=== PATIENT | female | born 1995 | race Caucasian/White ===

== ENCOUNTER 2023-03-18 11:24 | Emergency (ER) | payer MEDICAID ==
[~2023-03-18] VITALS: Ht 175.3 cm; Wt 66.2 kg
[2023-03-18 11:39] VITALS: BP_SYST 102; PULSE 81; RESP 18; TEMP 98.3; O2SAT 97
[2023-03-18] MEDS ORDERED: MECLIZINE HCL 25 MG TABLET (ANITVERT) PO ONE (12:00)
[2023-03-18] MEDS ORDERED: METOCLOPRAMIDE HCL 10 MG/2 ML VIAL IVP ONE (12:00)
[2023-03-18 12:15] LABS: BASOPHILS % (AUTO) 0.6 % (0.0-2.0); EOSINOPHILS # (AUTO) 0.1 K/uL (0.0-0.4); EOSINOPHILS % (AUTO) 1.4 % (0.0-4.0); HEMATOCRIT 37.6 % (36-48); HEMOGLOBIN 11.9 g/dL (12.0-16.0); LYMPHOCYTES # (AUTO) 2.9 K/uL (1.0-5.5); LYMPHOCYTES % (AUTO) 35.8 % (20.5-51.5); MEAN CORPUSCULAR HEMOGLOBIN 24 pg (27-31); MEAN CORPUSCULAR HGB CONC 32 % (32-36); MEAN CORPUSCULAR VOLUME 75 fL (79.0-98.0); MONOCYTES # (AUTO) 0.4 K/uL (0.0-1.0); MONOCYTES % (AUTO) 5.4 % (1.7-9.3); NEUTROPHILS # (AUTO) 4.6 K/uL (1.8-7.7); NEUTROPHILS % (AUTO) 56.8 % (40.0-70.0); PLATELET COUNT (AUTO) 231 K/uL (130-430); RED BLOOD CELL COUNT(AUTO) 4.99 MIL/uL (4.2-6.2); RED CELL DISTRIBUTION WIDTH 15.3 % (9.0-15.0); WHITE BLOOD COUNT (AUTO) 8.1 K/uL (4.8-10.8)
[2023-03-18 12:30] LABS: ERYTHROCYTE SEDIMENTATION RATE 11 MM/HR (0-20)
[2023-03-18 12:36] LABS: CALCIUM 8.8 mg/dL (8.4-11.0); CREATININE 0.7 mg/dL (0.55-1.30); POTASSIUM 3.9 mmol/L (3.5-5.1)
[2023-03-18 12:37] LABS: SERUM HCG (QUALITATIVE) NEGATIVE (NEGATIVE)
[2023-03-18 13:02] LABS: ALBUMIN 3.8 g/dL (3.4-4.8); TOTAL BILIRUBIN 0.3 mg/dL (0.0-1.0); TOTAL PROTEIN, SERUM 7.3 g/dL (6.4-8.3)
[2023-03-18] MEDS ORDERED: AMOX500C2 PO (13:46)
[2023-03-18] MEDS ORDERED: MECL-261 PO (13:46)
[2023-03-18 13:59] VITALS: BP_SYST 102; PULSE 81; RESP 18; TEMP 98.3; O2SAT 97
[2023-03-18 14:24] LABS: THYROID STIMULATING HORMONE 3.66 uIu/mL (0.34-4.82)
[2023-03-18 14:46] LABS: COVID19 ANTIGEN SOFIA FIA NEGATIVE (NEGATIVE); INFLUENZA TYPE A NEGATIVE (NEGATIVE); INFLUENZA TYPE B NEGATIVE (NEGATIVE)
== END 2023-03-18 13:56 | disposition home or self-care (01) ==
LOC: SED 11:24
DX: H66.93 Otitis media, unspecified, bilateral (principal); R42 Dizziness and giddiness; R11.0 Nausea; R05.9 Cough, unspecified; Z79.899 Other long term (current) drug therapy; Z20.822 Contact with and (suspected) exposure to COVID-19
CPT/HCPCS: 99285; 70450; 71045; 87426; 80053; 84703; 84439; 84443; 85025; 85651; 84484; 36415; 93005; 76376; 81025; 87804 ×2; 82397; J8597; J7030

== ENCOUNTER 2023-09-19 14:08 | Emergency (ER) | payer MEDICAID ==
[~2023-09-19] VITALS: Ht 175.3 cm; Wt 80.3 kg
[~2023-09-19 14:08] MED LIST: AMOX500C2 PO; MECL-261 PO
[2023-09-19 14:37] VITALS: BP_SYST 122; PULSE 82; RESP 18; TEMP 97.8; O2SAT 99
[2023-09-19] MEDS ORDERED: ACYC-133 PO (16:38)
[2023-09-19] MEDS ORDERED: HYDR-3927 PO (16:38)
[2023-09-19] MEDS ORDERED: IBUP-1971 PO (16:38)
[2023-09-19] MEDS: KETOROLAC TROMETHAMINE 60 MG/2 ML VIAL IM ONE (17:14)
[2023-09-19] MEDS: ACYCLOVIR 400 MG TABLET PO ONE (17:14)
[2023-09-19 17:34] VITALS: BP_SYST 122; PULSE 82; RESP 18; TEMP 97.8; O2SAT 99
== END 2023-09-19 17:15 | disposition home or self-care (01) ==
LOC: SED 14:08
DX: B02.9 Zoster without complications (principal); Z79.899 Other long term (current) drug therapy
CPT/HCPCS: 99283; 81025; 96372; J1885

== ENCOUNTER 2023-10-07 21:17 | Emergency (ER) | payer MEDICAID ==
[~2023-10-07] VITALS: Ht 175.3 cm; Wt 79.8 kg
[~2023-10-07 21:17] MED LIST changes: +ACYC-133 PO; +HYDR-3927 PO; +IBUP-1971 PO
[2023-10-07 21:33] VITALS: BP_SYST 116; PULSE 77; RESP 18; TEMP 98.1; O2SAT 98
[2023-10-07 22:27] LABS: COVID19 ANTIGEN SOFIA FIA NEGATIVE (NEGATIVE); INFLUENZA TYPE A Negative (NEGATIVE); INFLUENZA TYPE B NEGATIVE (NEGATIVE)
[2023-10-08] MEDS ORDERED: AUG875 PO (00:55)
[2023-10-08 00:58] VITALS: BP_SYST 106; PULSE 70; RESP 20; TEMP 98.3; O2SAT 97
== END 2023-10-08 00:58 | disposition home or self-care (01) ==
LOC: SED 21:17
DX: J20.9 Acute bronchitis, unspecified (principal); R05.9 Cough, unspecified; R09.89 Other specified symptoms and signs involving the circulatory and respiratory systems; R50.9 Fever, unspecified; Z79.899 Other long term (current) drug therapy; Z20.822 Contact with and (suspected) exposure to COVID-19
CPT/HCPCS: 36415; 99283